=== PATIENT | female | born 1975 | race Caucasian/White ===

== ENCOUNTER 2016-07-17 06:37 | Inpatient (IN) | payer MEDICARE ==
[~2016-07-17] VITALS: Ht 172.7 cm; Wt 99.8 kg
[2016-07-17] MEDS ORDERED: ZOLOFT100 MG PO (08:02)
[2016-07-17] MEDS ORDERED: SINGULAIR10 MG PO (08:02)
[2016-07-17] MEDS ORDERED: ZYRTEC10 MG PO (08:02)
[2016-07-17] MEDS ORDERED: TENORMIN 50 MG50 MG PO (08:03)
[2016-07-17] MEDS ORDERED: METFORMIN HCL500 MG PO (08:03)
[2016-07-17] MEDS ORDERED: CLONAZEPAM1 MG PO (08:04)
[2016-07-17] MEDS ORDERED: MOBIC15 MG PO (08:04)
[2016-07-17] MEDS ORDERED: CATAPRES 0.1MG0.1 MG PO (08:04)
[2016-07-17] MEDS ORDERED: NEURONTIN 300300 MG PO (08:05)
[2016-07-17] MEDS ORDERED: PHENERGAN 25 MG25 M1 PO (08:06)
[2016-07-17] MEDS ORDERED: PROTONIX40 MG PO (08:06)
[2016-07-17 09:21] LABS: HEMOGLOBIN 14.7 gm/dl (12.3-15.3); RED BLOOD COUNT 5.08 M/UL (4.00-5.10); WHITE BLOOD COUNT 22.2 K/UL (4.5-11.0)
[2016-07-17 09:31] LABS: BUN/CREATININE RATIO 13 (0-10)
[2016-07-17 18:58] LABS: HEMOGLOBIN 14.1 gm/dl (12.3-15.3); RED BLOOD COUNT 4.8 M/UL (4.00-5.10); WHITE BLOOD COUNT 23.8 K/UL (4.5-11.0)
[2016-07-17 19:03] LABS: BUN/CREATININE RATIO 13 (0-10)
[2016-07-18 03:41] LABS: HEMOGLOBIN 12.8 gm/dl (12.3-15.3); RED BLOOD COUNT 4.36 M/UL (4.00-5.10); WHITE BLOOD COUNT 19.5 K/UL (4.5-11.0)
[2016-07-18 04:19] LABS: BUN/CREATININE RATIO 17 (0-10)
[2016-07-18] MEDS ORDERED: ASPIRIN81 MG PO (11:02)
[2016-07-18] MEDS ORDERED: LIPITOR TAB 2020 MG PO (11:03)
[2016-07-18] MEDS ORDERED: KLONOPIN TAB 00.5 MG PO (11:03)
[2016-07-18] MEDS ORDERED: PLAVIX 75 MG TA75 MG PO (11:06)
[2016-07-18] MEDS ORDERED: LISINOPRIL10 MG PO (11:07)
[2016-07-18] MEDS ORDERED: METOPROLOL TART50 MG PO (11:08)
[2016-07-18] MEDS ORDERED: CHANTIX1 EACH PO (11:30)
[2016-07-18] MEDS ORDERED: METFORMIN HCL1000 MG PO (11:31)
== END 2016-07-18 13:15 | disposition home or self-care (01) | DRG 246 ==
LOC: CCU 07:39
PROVIDERS: Internal Medicine; ADMIT Internal Medicine Infectious Disease
PROC: 027034Z Dilation of Coronary Artery, One Artery with Drug-eluting Intraluminal Device, Percutaneous Approach (ICD-10-PCS; principal; 2016-07-17)
PROC: 02C03ZZ Extirpation of Matter from Coronary Artery, One Artery, Percutaneous Approach (ICD-10-PCS; principal; 2016-07-17)
PROC: 4A023N8 Measurement of Cardiac Sampling and Pressure, Bilateral, Percutaneous Approach (ICD-10-PCS; principal; 2016-07-17)
PROC: B2161ZZ Fluoroscopy of Right and Left Heart using Low Osmolar Contrast (ICD-10-PCS; principal; 2016-07-17)
PROC: B2111ZZ Fluoroscopy of Multiple Coronary Arteries using Low Osmolar Contrast (ICD-10-PCS; principal; 2016-07-17)
DX: I21.21 ST elevation (STEMI) myocardial infarction involving left circumflex coronary artery (principal); J96.01 Acute respiratory failure with hypoxia; I16.1 Hypertensive emergency; E78.5 Hyperlipidemia, unspecified; F17.210 Nicotine dependence, cigarettes, uncomplicated; Z82.49 Family history of ischemic heart disease and other diseases of the circulatory system; K04.7 Periapical abscess without sinus; E66.9 Obesity, unspecified; E11.65 Type 2 diabetes mellitus with hyperglycemia; Z79.84 Long term (current) use of oral hypoglycemic drugs; Z79.899 Other long term (current) drug therapy; Z88.0 Allergy status to penicillin; Z88.5 Allergy status to narcotic agent; Z71.6 Tobacco abuse counseling
CPT/HCPCS: ECHO; 36415; 71010; 80048; 80053; 80307; 82550; 82553; 82962; 83036; 83735; 83880; 84439; 84443; 84484; 85025; 85027; 85347; 85610; 85730; 87040; 93005; 93306; 94640; 94664; C1725; C1757; C1769; C1874; C1887; C1894; C9600; J0461; J0583; J1327; J1644; J2250; J2270; J3010; J7030; J7040; Q0162; Q9965